=== PATIENT | male | born 1990 | race Caucasian/White ===

== ENCOUNTER 2025-08-07 19:21 | Emergency (ER) | payer BC, SELFPAY ==
--- OUTSIDE RECORDS SUMMARY | 2017-11-06 10:18 | XMS_ITS | Continuity of Care Document ---
Author Organization [facility] Address [address] [place] [address] [place] [address] Care Team Providers Care Stock Hanger Name Role Phone Elie Stoner Unavailable Unavailable Allergies, Adverse Reactions, Alerts Substance Reaction Status Criticality Penicillins Active No Information PENICILLIN Active No Information Medications Medication Instructions Dosage Effective Dates (start - stop) Status Comments sertraline 100 mg tablet take 2 tablet by oral route every day 200 MG - No Longer Active Advance Directives Directive Yes / No Effective Date File Name No Information Encounters Encounter Description Practice Location Reason(s) For Visit Diagnoses Date Provider Providers Copied on Encounter [facility] , [address] [place] [address], [phone], [facility] No Information 9-201 7 Herbie Delgadillo. . [facility] , [address] [place] [address], [id number], [facility] No Information 3-201 7 Herbie Delgadillo. . Family History Family Member Type Diagnosis Age At Onset No Information Payers Payer name Insurance type Covered green party ID Authoriza tion(s) No Information Social History Type Description Quantity Date Captured Comments Sex Male Smoking Status No Information Vital Signs Date / Time: Height Weight BMI Pulse Rate Blood Pressure Temperature Respiratory Rate Body Surface Area Head Circumference Head Circ. Percentile Wt./Yogi. Percentile BMI percentile Pulse Ox Inhaled Ox 3:22 PM 92 /min 122/73 mm[Hg] 18 /min 98 % Chief Complaint And Reason For Visit No Information Reason For Referral Reason For Referral No Information History Of Present Illness Encounter Date Complaint History Of Prese nt Illness No Information Functional Status Date Functional Assessmen t No Information Instructions Date Instruction Additional Infor mellissa Instructions on How to Access Health Services given Assessments Type Assessment Date No Information Patient Care Teams Name Effective Dates (start - stop) Status Members No Information
--- OUTSIDE RECORDS SUMMARY | 2025-06-30 03:00 | XMS_ITS | Encounter Summary ---
Author Organization [email or web address] Address [address], [place] [address] Care Team Providers Care Sample Distributor Name Role Phone Titi Jones PA-C Primary Care Provider [phone]- [phone] Reason for Visit * Reason Comments Medication Questions Entered automatical ly based on patient selection in [employer]. Encounter Details Date Type Department Care Team (Late st Contact Info) Description 06/30/2025 3:00 AM CDT E-Visit [address] [address] Titi Jones PA-C [address] [place] [id number] Dx: Attention deficit hyperactivity disorder (ADHD), combined type (HRC) Social History Tobacco Use Types Packs/Day Years Used Date Smoking Tobacco: Former Cigarettes Q uit: 04/09/2023 Smokeless Tobacco: Never Alcohol Use Standard Drinks/Week Comments Not Currently 0 (1 standard drink = 0.6 oz pur e alcohol) Sober since approx 2019 Sex and Gender Information Value Date Recorded Sex Assigned at Not on file Legal Sex Male 6:54 AM CDT Gender Identity Not on file Sexual Orientation Not on file 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
--- OUTSIDE RECORDS SUMMARY | 2025-07-05 16:15 | XMS_ITS | Encounter Summary ---
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 male who presents for No chief complaint on file. History of Present Illness Eddy Herring is a 34-year-old presenting with depression, anxiety, sleep disturbance, and ADHD symptoms. He reports much improvement in mood and overall functioning compared to previous visits, though periods of significant rumination and overthinking continue. He reports that ongoing symptoms of depression and anxiety have improved with his current medication regimen, but he notes that these can still become severe at times. He currently takes Pristiq 100 mg daily for depression and anxiety, thoughhe expresses some uncertainty about the exact dose and relies on others to manage his medications. Although he expresses uncertainty about how the medication works, he acknowledges some benefit, particularly with reduced rumination. He also takes propranolol 40 mg three times daily, which helps with anxiety. He continues to experience persistent sleep difficulties despite medication adjustments. He currently takes zolpidem (Ambien), which his primary care provider recently increased to 10 mg. He reports that the medication helps him fall asleep quickly and sleep more deeply, but he often wakes up around 1 or 2 a.m. and experiences fragmented sleep for the rest of the night. He also describes episodesof sleep-related eating, particularly when he skips or delays dinner, leading to excessive nighttime snacking and occasional morning nausea. He remains concerned about these side effects and the overall quality of his sleep. He takes gabapentin 300 mg three times daily, which he has used for several months. He reports thatthis medication helps with nerve-related symptoms, but he feels unsure if the current dose is sufficient, as he has noticed a decrease in effectiveness over time. For ADHD symptoms, he takes [id number] mg daily and Adderall 30 mg twice daily, and he does not report any recent changes or concerns with this medication. Describing himself as a very literal person, he notes that this trait affects his daily life and interactions. During this appointment, he identifies being more talkative and engaged than in previousvisits, which he views as a positive change. He reports feeling better than at previous visits and expresses a desire to continue making progress. Psychiatric History: He reported never having been this talkative in any of his appointments in his life. He stated, I really haven't been on a medication that I feel like is, like actually worked before, indicating past medication trials without perceived benefit. Social History: He reported that his partner manages his medications and organizes them in weekly pill containers. Objective There were no vitals taken for this visit. Physical Exam The patient's orientation, memory, Attention, language and fund of knowledge are at their usual best baseline. Grooming/Hygiene: adequate Eye Contact: normal Psychomotor: normal Observed mood and affect: appropriate Judgment: intact, with thoughtful decision making and insight Speech: normal rate, rhythm, tone and volume Thought processes: normal, with normal rate of thought Associations: No deficiency Abnormal Thoughts: none Assessment/Plan Major depressive disorder Currently on Pristiq 100 mg daily with improvement in symptoms but significant rumination and anxiety persists. Discussed increasing Pristiq to 150 mg daily, which is within the typical dosage range of 100-150 mg, with 200 mg used in special circumstances. He prefers to increase to 150 mg. - Increase Pristiq to 150 mg daily by taking one 100 mg tablet and one 50 mg tablet. Insomnia Currently taking zolpidem 10 mg, causing interrupted sleep and sleep-related eating behaviors. Discussed risks of zolpidem, including sleepwalking and sleep eating. He desires a change. Plan to switch to Lunesta, which may provide more stable sleep without immediate need to go to bed after taking. Lunesta is potentially habit-forming but not addictive. - Discontinue zolpidem. - Initiate Lunesta at 2 mg nightly. Chronic neuropathic pain Currently on gabapentin 300 mg three times daily with some benefit but desires increased efficacy. Discussed potential for increasing dosage. Plan to increase gabapentin dosage after other medicationchanges are stabilized. Attention-deficit hyperactivity disorder (ADHD) Currently managed with Adderall 15 mg daily and 30 mg twice daily. Anxiety disorder Anxiety managed with propranolol 40 mg three times daily and Pristiq. 1. ADHD (attention deficit hyperactivity disorder), inattentive type (HRC) 2. 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
[2025-08-07 19:30] VITALS: BP 118/64; PULSE 75; RESP 16; TEMP 36.7; O2SAT 98; BMI 34.0
--- NOTE | 2025-08-07 19:42 | ED.SKABFB ---
HPI - Skin/Abscess/Foreign Bdy General Time Seen by Provider: 19:42 Date Seen: 08/07/25 Chief complaint: Skin/Abscess/Foreign Body Stated complaint: ear infection/Mrsa infection Time Seen by Provider: 08/07/25 19:34 Source: patient and RN notes reviewed Mode of arrival: ambulatory Limitations: no limitations History of Present Illness HPI narrative: This 34-year-old male is coming in with concern of infections. Has a wound on his right forearm which he states he has popped and drained. States sometimes ahead comes out of it, might be a bug. He has cuts and scrapes elsewhere in his body, he has a lesion on his back that he thinks might need to be popped. He denies any fevers, he believes he is up-to-date on his tetanus. He states that he does not do any drug use, no injections. He states he has depression and sometimes has cut himself. Denies any acute suicidality. 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 He notes his left ear is bothering him, would like me to look at it, hearing is diminished. Not painful now but has been painful. He did have some antibiotic drops, he wondered if the ear canal was swelling. He has had no acute cough or cold symptoms. Some of his wounds he states he has had for a long time. Related Data Home Medications ?Medication ?Instructions ?Recorded ?Confirmed desvenlafaxine succinate PO 08/07/25 dextroamphetamine-amphetamine .ROUTE 08/07/25 gabapentin .ROUTE 08/07/25 propranolol .ROUTE 08/07/25 Allergies Allergy/AdvReac Type Severity Reaction Status Date / Time No Known Drug Allergies Allergy Verified 08/07/25 19:36 Review of Systems Narrative: As per HPI. PFSH PFS Social History How often do you have a drink containing alcohol: never AUDIT-C Alcohol total score: 0 Non-prescribed substance use: denies use Exam Const: Vital Signs, click to edit/add: Vital Signs - 24 hr 08/07/25 19:30 Temperature 98.1 F Pulse Rate [Pulse Oximeter] 75 Respiratory Rate 16 Blood Pressure [Ri ght Upper Arm] 118/64 Pulse Oximetry 98 Oxygen Delivery Me thod Room Air This 34-year-old male is alert, interactive, no apparent distress. His speech is normal, not pressured. Sclera clear, pupils equal and round, face atraumatic, no lesions noted on his face. At the base of his skin overlying the lower left scapula, he has an abrasion, there is no fluctuance to it, no surrounding erythema. I can see scrape wounds that her older on his left flank and torso, did ask him about this but he stated he had bad day at 1 point, would not tell me further on how the injury happened. Lungs are clear, good air entry, no wheezing or crackles, no tachypnea, no accessory muscle use. CV regular rate and rhythm, no murmur, normal S1-S2, no S3 or S4. On his right forearm he has a bandage, this was removed, there is a raised area with some erythema, the center looks like it has been picked, the area contains a central pocket of whitish exudate in this was cultured. When this is removed, there is some subcutaneous tissue but no further abscess. There is a little bit of erythema surrounding the site, looks like it could be some infection or cellulitis that is mild. He has full range of motion both arms. He has various scrapes on his legs, none of which are infected. Did review with him that the lesion on his left back area just looks like an abrasion, encouraged him to try to leave this alone. His ears externally are normal. Left canal looks normal, tympanic membrane has some whitish fluid behind it but no erythema, there is loss of translucency and loss of light reflex. Documenting provider has reviewed patient's vital signs: yes Course Course ED Course: We did culture the right forearm central area. Patient denies any drug use. I did not feel like it pressed him further without upsetting him. He seems to be coherent and providing me appropriate history. He is answered questions appropriately. Even though no eye potentially suspect something like underlying methamphetamine use, he is denying any drug use. Do feel his arm should be treated with antibiotics. Vital Signs Vital signs: Initial Vital Signs Temperature 98.1 F 08/07/25 19:30 Temperature Source Temporal Artery Scan 08/07/25 19:30 Pulse Rate 75 08/07/25 19:30 Respiratory Rate 16 08/07/25 19:30 Blood Pressure 118/64 08/07/25 19:30 Blood Pressure Mean 82 08/07/25 19:30 Blood Pressure Position Sitting 08/07/25 19:30 Pulse Oximetry 98 08/07/25 19:30 Oxygen Delivery Method Room Air 08/07/25 19:30 Vital Signs Temperature 98.1 F 08/07/25 19:30 Pulse Rate 75 08/07/25 19:30 Respiratory Rate 16 08/07/25 19:30 Blood Pressure 118/64 08/07/25 19:30 Pulse Oximetry 98 08/07/25 19:30 Oxygen Delivery Method Room Air 08/07/25 19:30 Temperature 98.1 F 08/07/25 19:30 Pulse Rate 75 08/07/25 19:30 Respiratory Rate 16 08/07/25 19:30 Blood Pressure 118/64 08/07/25 19:30 Pulse Oximetry 98 08/07/25 19:30 Oxygen Delivery Method Room Air 08/07/25 19:30 Discharge Plan Discharge Clinical Impression: Cellulitis Qualifiers: Site of cellulitis: extremity Site of cellulitis of extremity: upper extremity Laterality: right Qualified Code(s): L03.113 - Cellulitis of right upper limb Serous otitis media Qualifiers: Chronicity: unspecified Laterality: left Qualified Code(s): H65.92 - Unspecified nonsuppurative otitis media, left ear Patient Disposition: Home, Self-Care Condition: Stable Instructions: Cellulitis (ED), Fluid In The Ear (Serous Otitis Media) (ED) Additional Instructions: Wound culture was collected from your arm. If this requires any change in antibiotics we will let you know. Start the doxycycline 100 mg twice a day for 10 days. This should cover MRSA. Other things you can try for your left ear are [id number] nasal steroid like fluticasone. Follow bottle directions for sprain into your nose. This helps shrink the mucous membranes an open up the eustachian tube, thus opening up the ear better. If you are not improving over the next week or worsening, do recommend following up in clinic. Activity Level: Activity as Tolerated Prescriptions: No Action dextroamphetamine-amphetamine [Adderall] .ROUTE propranolol .ROUTE desvenlafaxine succinate [Pristiq] PO gabapentin .ROUTE Stand Alone Forms: MyHealth Info Instructions
--- OUTSIDE RECORDS SUMMARY | 2025-08-07 20:06 | XMS_ITS | Clinical Summary ---
Author Organization [facility] Address [address] [place] [address] Care Team Providers Care Fruit Press Operator Name Role Phone Titi Jones PA-C Primary Care Provider [phone]- [phone] Source Comments You are receiving this document as you are listed as the primary care provider,follow-up provider, or the patient has been referred to you for consultation.This is in compliance with the Medicare andMedicaid EHR Incentive Program,which states Providers who transition their patient to another setting of careor provider of care or refers their patient to another provider of care shouldprovide summary care record for each transition of care or referral. [facility] Allergies No known active allergies Medications sildenafil (VIAGRA) 100 MG tablet Take 1 Tablet (100 mg) by mouth daily as needed. 5 Active ferrous sulfate 325 (65 Fe) MG tabletIndications: Iron deficiency anemia, unspecified iron deficiency anemia type Take 1 Tablet (325 mg) by mouth three times a week. 36 Tablet 3 5 02/07/20 26 Active medical cannabis patient certified Take as instructed. Active gabapentin (NEURONTIN) 300 MG capsuleIndications :Anxiety (HRC),Emotional dysregulation,Inso mnia, unspecified type Take 1 Capsule (300 mg) by mouth three times a day. 270 Capsule 3 5 Active propranolol (INDERAL) 40 MG tabletIndications: Anxiety (HRC) Take 1 Tablet (40 mg) by mouth three times a day. 270 Tablet 1 5 05/18/20 26 Active amphetamine-dextro amphetamine (ADDERALL) 15 MG tabletIndications: Attention deficit hyperactivity disorder (ADHD), combined type (HRC) Take 1 Tablet (15 mg) by mouth daily. 30 Tablet 5 Active amphetamine-dextro amphetamine (ADDERALL) 30 MG tabletIndications: Attention deficit hyperactivity disorder (ADHD), combined type (HRC) Take 1 Tablet (30 mg) by mouth two times a day. 60 Tablet 5 Active desvenlafaxine succinate (PRISTIQ) 50 MG 24 hour release tablet Take 1 Tablet (50 mg) by mouth daily. 90 Tablet 3 5 07/06/20 26 Active desvenlafaxine (PRISTIQ) 100 MG 24 hour release tablet Take 1 Tablet (100 mg) by mouth daily. 90 Tablet 3 5 07/06/20 26 Active eszopiclone (LUNESTA) 2 MG tablet Take 1 tab HS 30 Tablet 5 Active amphetamine-dextro amphetamine (ADDERALL) 15 MG tablet Take 1 Tablet (15 mg) by mouth daily for 30 days. 1 of 3 30 Tablet 5 08/30/20 25 Active amphetamine-dextro amphetamine (ADDERALL) 15 MG tablet Take 1 Tablet (15 mg) by mouth daily for 30 days. 2 of 3 Do not start before August 30, 2025. 30 Tablet 5 09/29/20 25 Active amphetamine-dextro amphetamine (ADDERALL) 15 MG tablet Take 1 Tablet (15 mg) by mouth daily for 30 days. 3 of 3 Do not start before September 29, 2025. 30 Tablet 5 10/29/20 25 Active amphetamine-dextro amphetamine (ADDERALL) 30 MG tablet Take 1 Tablet (30 mg) by mouth two times a day for 30 days. 1 of 3 60 Tablet 5 08/30/20 25 Active amphetamine-dextro amphetamine (ADDERALL) 30 MG tablet Take 1 Tablet (30 mg) by mouth two times a day for 30 days. 2 of 3 Do not start before August 30, 2025. 60 Tablet 5 09/29/20 25 Active amphetamine-dextro amphetamine (ADDERALL) 30 MG tablet Take 1 Tablet (30 mg) by mouth two times a day for 30 days. 3 of 3 Do not start before September 29, 2025. 60 Tablet 10/29/20 Active Active Problems Problem Noted Date Diagnosed Date Careplan ADHD 03/08/2025 Overview (06/19/2025): Diagnosis: ADHD [place] PDMP reviewed: yes, 06/19/2025 Yearly urine drug screens will be obtained: yes, 02/02/25 Last seen: 04/11/25 The patient is taking the following controlled medications -- Adderall 30 tablets: Take 1 tab PO twice daily This medication may be refilled every month for a total of 60 tablets Adderall 15 tablets: Take 1 tab PO daily This medication may be refilled every month for a total of 30 tablets The patient should be seen every 6 months. He is also working with Behavioral Health. Medical cannabis use 02/09/2025 Chronic heel pain, right 02/09/2025 Iron deficiency anemia 02/02/2025 Insomnia 02/01/2025 Emotional dysregulation 01/31/2025 Attention deficit hyperactiv ity disorder (ADHD), combined type 01/31/2025 Electronic cigarette use 01/31/2025 Elevated transaminase level 08/05/2023 History of substance use 07/02/2021 Overview (01/31/2025): Previously using kratom daily. On suboxone April-June 2021 to stop kratom use. Now off of kratom and suboxone. Anxiety 04/26/2021 History of alcoholism 02/22/2021 Depressive disorder 04/22/2011 Resolved Problems Problem Noted Date Diagnosed Date Resolved Date Abscess of skin 02/01/2025 04/11/2025 Tobacco use disorder 01/31/2025 025 Bipolar 1 disorder 08/05/2023 Opioid use disorder, severe, in early remission 11/26/2021 02/01/2025 ADHD (attention deficit hype ractivity disorder), predominantly hyperactive impulsive type 02/22/2021 01/31/2025 Controlled substance agreement signed 02/22/2021 01/31/2025 Encounters Date Type Department Care Team Description 07/29/2025 Refill [place] [facility] [address] [place] [address] Titi Jones PA-C Refill (amphetamine-dextroamph etamine (ADDERALL) 30 MG tablet [Pharmacy Med Name: Amphetamine-Dextroamphe tamine Oral Tablet 30 MG]; amphetamine-dextroamphe tamine (ADDERALL) 15 MG tablet [Pharmacy Med Name: Amphetamine-Dextroamphe tamine Oral Tablet 15 MG]) 07/05/2025 4:15 PM CDT Telemedicine [facility] [address] [place] [address]. 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 [address] Enrike Barnett MSW, VIRGIE 06/29/2025 E-Visit [address] [place] [address] Enrike Barnett MSW, VENETIAN BLIND INSTALLER 06/19/2025 5:20 PM CDT Telemedicine [address] [phone] Titi Jones PA-C Insomnia, unspecified type (Primary Dx) 06/13/2025 3:30 PM CDT Telemedicine [address] [place] [address] Enrike Barnett MSW, VENETIAN BLIND INSTALLER Generalized anxiety disorder (HRC) (Primary Dx); Depression, unspecified depression type 05/30/2025 8:00 AM CDT Telemedicine [facility] [address] [place] [address]. [place] [address] Sherman Reese PA-C ADHD (attention deficit hyperactivity disorder), inattentive type (HRC) (Primary Dx); Generalized anxiety disorder (HRC) 05/30/[address] [address] Titi Jones PA-C Refill (amphetamine-dextroamph etamine (ADDERALL) 15 MG tablet [Pharmacy Med Name: Amphetamine-Dextroamphe tamine Oral Tablet 15 MG]; amphetamine-dextroamphe tamine (ADDERALL) 30 MG tablet [Pharmacy Med Name: Amphetamine-Dextroamphe tamine Oral Tablet 30 MG]) 05/18/2025 4:35 PM CDT Telemedicine [address] [address] Titi Jones PA-C Anxiety (HRC) (Primary Dx); Insomnia, unspecified type; Attention deficit hyperactivity disorder (ADHD), combined type (HRC); Iron deficiency anemia, unspecified iron deficiency anemia type 05/11/2025 1:00 PM CDT Telemedicine [facility] [address] [place] [address]. [place] [address] Enrike Barnett, INNOVATION MANAGER, [facility] Encounters for administrative purposes (Primary Dx) from Last 3 Months Immunizations Immunization Administration Dates Next Due 9vHPV (Gardasil 9) 04/11/2025,12/21/2020, 016 DTaP 09/28/1995, 2,02/18/1991,1990 ,1990 HepB Ped/Adol (0-18 yrs) 06/10/1999,02/05/1999,0 12/31/1998 Hib (ActHIB) 11/07/1991,02/18/1991,1990 ,1990 IPV (Polio) 09/28/1995,02/29/1992,1990 ,1990 MMR 01/01/1999,11/07/1991 Pfizer Monovalent 12+ Purple Top 04/25/2021,0504/2021 Td (7+ yrs) 03/17/2003 Tdap 02/04/2025,12/01/2014 Family History Medical History Relation Name Comments No Known Problems Father Depression Mother ADHD Daughter 1 Anxiety Daughter 1 Depression Daughter 1 No Known Problems Daughter 2 No Known Problems Sister ADHD Son Anxiety Son Conduct disorder Son Depression Son Psychopathic tendences Son Relation Name Status Comments Father Alive Mother Alive Daughter 1 Alive Daughter 2 Alive Sister Alive Son Alive Social History Tobacco Use Types Packs/Day Years Used Date Smoking Tobacco: Former Cigarettes Q uit: 04/09/2023 Smokeless Tobacco: Never Tobacco Cessation:Counseling Given: Not Answered Alcohol Use Standard Drinks/Week Comments Not Currently [...] file Not on file Not on file Last Filed Vital Signs Vital Sign Reading Time Taken Comments Blood Pressure 117/71 04/11/2025 10:34 AM CDT Pulse 70 04/11/2025 10:34 AM CDT Temperature 37 C (98.6 F) 03/08/2014 6:29 PM CDT Respiratory Rate 14 03/09/2014 4:30 AM CDT Oxygen Saturation 93% 03/09/2014 5:00 AM CDT Inhaled Oxygen Concentration - - Weight 72.6 kg (160 lb) 06/19/2025 4:21 PM CDT Height 180.3 cm (5' 11) 01/31/2025 10:26 AM CDT Body Mass Index 22.32 01/31/2025 10:26 AM CDT Plan of Treatment Health Maintenance Due Date Last Done Comments Adult Preventive Visit 2008 Pneumococcal Vaccine (1 of 2 - PCV) 2009 COVID-19 Vaccine (3 - season) 2025 04/25/2021, 04/03/2021 Influenza Vaccine (#1) 2025 DTaP/Tdap/Td Vaccine (8 - Tdap) 02/04/2035 02/04/2025, 12/01/2014, 03/17/2003, Additional history exists Zoster/Shingles Vaccine (1 of 2) 2040 Hib Vaccine Completed 11/07/1991, 02/07, 1990, Additional history exists IPV (Polio) Vaccine Completed 09/28/1995, 02/29/1992, 1990, Additional history exists HepB Vaccine Completed 06/10/1999, 01/09, 12/31/1998 HIV Screening (Preventive Services) Completed 04/19/2021 Hep C Screening (Preventive Services) Completed 02/02/2025 HPV Vaccine Completed 04/11/2025, 12/10, 08/29/2016 HepA Vaccine Aged Out No longer eligi ble based on patient's age to complete this topic MCV4 Vaccine Aged Out No longer eligi ble based on patient's age to complete this topic Meningococcal B Vaccine Aged Out No l onger eligible based on patient's age to complete this topic Procedures Procedure Name Priority Date/Time Associated Diagnosis Comments HEPATITIS C ANTIBODY, WITH REFLEX (ANTI-HCV) Routine 02/02/2025 10:12 AM CDT Need for hepatitis C screening test from Last 3 Months or Most Recently Relevant to Health Maintenance Results * Hepatitis C Antibody, with Reflex (02/02/2025 10:12 AM CDT) Hepatitis C Antibody Negative (Non Reactive) Negative (Non Reactive) 02/02/2025 2:36 PM CDT [facility] Comment:Antibodies to HCV no t detected. Does not exclude the possiblity of exposure to HCV. Blood Venipuncture / Unknown 02/02/2025 10:12 AM CDT 02/02/2025 10:12 AM CDT us Tyrese Rivers PA-C LAB_1 Final Resu lt [facility] [address] [place] [address], [facility] from Last 3 Months or Most Recently Relevant to Health Maintenance Insurance [facility] [employer] [facility] Care Teams Fruit Press Operator Relationship Specialty Start Date End Date Titi Jones PA-C [address] [place] [address] PCP - General Physician Manager Interface 05/31/25
--- OUTSIDE RECORDS SUMMARY | 2025-08-07 20:06 | XMS_ITS | Encounter Summary ---
Author Organization [facility] Address [address], [place] [address] Care Team Providers Care Gemologist Name Role Phone Titi Jones PA-C Primary Care Provider +1- [phone] Encounter Details Date Type Department Care Team (Late st Contact Info) Description 06/29/2025 [facility] [address] 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 Therapist left a voicemail for client; purpose of the voicemail was to provide client with in- person referrals for therapists that are closer to his location. Therapist asked client to look into the referrals and schedule with a therapist at one of the referral clinics as soon as possible for in-person therapy. documented in this encounter Plan of Treatment Not on file documented as of this encounter Visit Diagnoses Not on filedocumented in this encounter Care Teams Gemologist Relationship Specialty Start Date End Date Titi Jones PA-C [address] [place] [address] PCP - General Physician Research Geneticist 05/31/25 documented as of this encounter
--- OUTSIDE RECORDS SUMMARY | 2025-08-07 20:06 | XMS_ITS | CCD ---
Author Name Interface, [id number] lity Address [address] [place] [address] [facility] Oncology Address [facility] [address] [address] Reason for Visit Social History Date Name Value 07/08/2025 Sex Male
--- OUTSIDE RECORDS SUMMARY | 2025-08-07 20:06 | XMS_ITS | Encounter Summary ---
Author Organization [facility] Address [address], [place] [address] Care Team Providers Care Processing Manager Name Role Phone Titi Jones PA-C Primary Care Provider +1- [phone] Reason for Visit * Reason Comments Refill amphetamine-dextroam phetamine (ADDERALL) 30 MG tablet [Pharmacy Med Name: Amphetamine-Dextroamphetamine Oral Tablet 30 MG]; amphetamine-dextroamphetamine (ADDERALL) 15 MG tablet [Pharmacy Med Name: Amphetamine-Dextroamphetamine Oral Tablet 15 MG] Encounter Details Date Type Department Care Team (Late st Contact Info) Description 07/29/2025 Refill [facility] [address] [place] [address] Titi Jones PA-C [address] [place] [address] Refill (amphetamine-dextroamphe tamine (ADDERALL) 30 MG tablet [Pharmacy Med Name: Amphetamine-Dextroamphet amine Oral Tablet 30 MG]; amphetamine-dextroamphet amine (ADDERALL) 15 MG tablet [Pharmacy Med Name: Amphetamine-Dextroamphet amine Oral Tablet 15 MG]) Social History Tobacco Use Types Packs/Day Years [...] as of this encounter Nursing Notes * Jose Manuel Parsons Xrwcomm - 07/29/2025 9:30 AM CDT amphetamine-dextroamphetamine (ADDERALL) 15 MG tablet [Pharmacy Med Name: Amphetamine-Dextroamphetamine Oral Tablet 15 MG] Medication started: 01/31/2025 Last ordered by TITI JONES: 06/30/2025 (29 days ago) QTY: 30, Refills: 0, Sig: take 1 tablet(15 mg) by mouth daily. (changed but equivalent) -> The medication is active at more than one strength (3.75-3.75-3.75-3.75 mg on 06/30/2025, 7.5-7.5-7.5-7.5 mg on 06/30/2025). -> Medication cannot be delegated. Last qualifying visit: 06/19/2025 (with TITI JONES) Next scheduled visit: [facility] Embedded Refills, Reference: [id number], 07/29/2025 9:30:13 AM Maikol HOOPER: CHENCHO Refill [facility] ([id number]) amphetamine-dextroamphetamine (ADDERALL) 30 MG tablet [Pharmacy Med Name: Amphetamine-Dextroamphetamine Oral Tablet 30 MG] Medication started: 01/31/2025 Last ordered by TITI JONES: 06/30/2025 (29 days ago) QTY: 60, Refills: 0, Sig: take 1 tablet(30 mg) by mouth two times a day. (changed but equivalent) -> The medication is active at more than one strength (7.5-7.5-7.5-7.5 mg on 06/30/2025, 3.75-3.75-3.75-3.75 mg on 06/30/2025). -> Medication cannot be delegated. Last qualifying visit: 06/19/2025 (with TITI JONES) Next scheduled visit: [facility] Embedded Refills, Reference: [id number], 07/29/2025 9:30:13 AM DANYATMaikol: CHENCHO Refill [facility] ([id number]) * Jose Manuel Parsons Xrwcomdelisa - 07/29/2025 9:30 AM CDT The following is the most recent Careplan note pulled in by [employer]: Diagnosis: ADHD [place] PDMP reviewed: yes, 06/19/2025 [...] He is also working with Behavioral Health. documented in this encounter Plan of Treatment Not on file documented as of this encounter Visit Diagnoses Diagnosis Attention deficit hyperactivity disorder (ADHD), combined type (HRC) documented in this encounter Care Teams Processing Manager Relationship Specialty Start Date End Date Titi Jones PA-C [address] [place] [address] PCP - General Physician Modeling Agency Manager 05/31/25 documented as of this encounter
--- OUTSIDE RECORDS SUMMARY | 2025-08-07 20:06 | XMS_ITS | Encounter Summary ---
Author Organization [facility] Address [address] [place] [address] Care Team Providers Care Letterer Name Role Phone Titi Jones PA-C Primary Care Provider +1- [phone] Encounter Details Date Type Department Care Team (Late st Contact Info) Description 02/13/2014 Scanned History External to External, [place] [address] MEDICAL DETOX Social History Tobacco Use Types Packs/Day Years Used Date Smoking Tobacco: Every Day Cigarettes Alcohol Use Standard Drinks/Week Comments Yes 0 (1 standard drink = 0.6 oz pure alcohol) discharged from [facility] today [id number] Sex and Gender Information Value Date Recorded Sex Assigned at Not on file Legal Sex Male 6:54 AM CDT Gender Identity Not on file Sexual Orientation Not on file documented as of this encounter Progress Notes * External, Provider - 02/13/2014 12:00 AM CDT documented in this encounter Plan of Treatment Not on file documented as of this encounter Visit Diagnoses Not on filedocumented in this encounter Care Teams Letterer Relationship Specialty Start Date End Date Titi Jones PA-C [address] [place] [address] PCP - General Physician Senior Research Consultant 05/31/25 documented as of this encounter
--- OUTSIDE RECORDS SUMMARY | 2025-08-07 20:06 | XMS_ITS | Encounter Summary ---
Author Organization [facility] Address [address], [place] [address] Care Team Providers Care Chargeback Analyst Name Role Phone Titi Jones PA-C Primary Care Provider +1- [phone] Encounter Details Date Type Department Care Team (Late st Contact Info) Description 06/29/2025 E-Visit [facility] [address] [facility] [place] [address] Enrike Barnett, TILE INSTALLER, [facility] [address] [facility] [place] [address] Social History Tobacco Use Types Packs/Day Years [...] on filedocumented in this encounter Care Teams Chargeback Analyst Relationship Specialty Start Date End Date Titi Jones PA-C [address] [place] [address] PCP - General Physician Redrawer 05/31/25 documented as of this encounter
--- OUTSIDE RECORDS SUMMARY | 2025-08-07 20:06 | XMS_ITS | Clinical Summary ---
Author Organization [employer] [facility] Address [address] [place] [address] Care Team Providers Care Hot Metal Crane Operator Name Role Phone Tyrese Rivers PA-C Primary Care Provider +1- [phone] Allergies Active Allergy Reactions Criticality Noted Date Comments Sulfa (Sulfonamide Antibiotics) Rash Low 05/11 Medications amphetamine-dextro amphetamine (AdderalL) 15 mg tabletIndications: ADHD (attention deficit hyperactivity disorder), predominantly hyperactive impulsive type Take 1 Tablet (15 mg) by mouth once daily. 30 Tablet 5 Active amphetamine-dextro amphetamine (AdderalL) 30 mg tabletIndications: ADHD (attention deficit hyperactivity disorder), predominantly hyperactive impulsive type Take 1 Tablet (30 mg) by mouth two times daily. 60 Tablet 5 Active lamoTRIgine 100 mg tabletIndications: Bipolar 1 disorder (HC) Take 1 Tablet (100 mg) by mouth three times daily. 90 Tablet 1 5 Active sertraline (ZOLOFT) 100 mg tabletIndications: Depressive disorder,Anxiety Take 2 Tablets (200 mg) by mouth once daily in the morning. 60 Tablet 5 Active sildenafil citrate (VIAGRA) 100 mg tabletIndications: ED (erectile dysfunction) of organic origin Take 1 Tablet (100 mg) by mouth once daily if needed for Erectile Dysfunction. Take 30min to 4 hours before sexual activity. Max 100mg/24hr. 10 Tablet Active Active Problems Problem Noted Date Diagnosed Date Bipolar 1 disorder 08/05/2023 Elevated transaminase level 08/05/2023 Opioid use disorder, severe, in early remission 11/26/2021 History of substance use 07/02/2021 Overview (07/02/2021): Previously using kratom daily. On suboxone April-June 2021 to stop kratom use. Now off of kratom and suboxone. Anxiety 04/26/2021 Controlled substance agreement signed 02/22/2021 ADHD (attention deficit hype ractivity disorder), predominantly hyperactive impulsive type 02/22/2021 Tobacco use disorder, severe, on maintenance the rapy 02/22/2021 Overview (07/01/2021): Previously smoking 3-4 packs daily. Now on nicotine patch. History of alcoholism 02/22/2021 Self-inflicted injury 03/16/2016 Overview (03/16/2016): 03/16/2016 he cut his chest in a cross like pattern Depressive disorder, not elsewhere classified Resolved Problems Problem Noted Date Diagnosed Date Resolved Date Constipation due to opioid therapy 07/19/2021 08/05/2023 History of substance abuse 02/22/2021 0 07/11/2021 Attention deficit hyperactiv ity disorder (ADHD) 08/05/2017 02/22/2021 Hematemesis with nausea 03/16/201607/11 Chemical dependency 04/14/2013 02/23/20 21 Uvular swelling 05/11/2012 08/05/2023 Acute alcoholic intoxication in alcoholism, unspecified 04/22/2011 02/22/2021 Encounters Date Type Department Care Team Description 07/28/2025 Telephone [facility] [address] [place] [address] Madeleine Gustafson OD OPTICAL RETAIL (GLASSES) 07/18/2025 3:40 PM CDT Office Visit [facility] [address] [place] [address] Madeleine Gustafson, OD Eye Exam 07/18/2025 Travel 05/15/2025 Refill [facility] [address] [place] [address] Sherman Reese PA Refill Request (Sertraline) from Last 3 Months Immunizations Immunization Administration Dates Next Due COVID-19 vaccine (Pfizer-Bio NTech 30mcg/0.3mL) PF, MDV 04/25/2021,04/03/2021 DTaP 09/28/1995, 2,02/18/1991,1990,1990 HIB PRP-T (ActHIB,Hiberix) 11/07/1991,,1990,1989 HPV 9 (Gardasil 9) 12/21/2020,08/29/2016 Hepatitis B (Peds) 06/10/1999,02/05/1999, 999 Inactivated Polio Vaccine 09/28/1995,,1990,1989 MMR 01/01/1999,11/07/1991 Tdap 02/04/2025,12/01/2014 Family History Medical History Relation Name Comments No Known Problems Father Alcoholism Maternal Grandfather Cancer-breast Maternal Grandmother Depression Mother Hypertension Mother Alcoholism Paternal Grandfather No Known Problems Paternal Grandmother No Known Problems Sister Relation Name Status Comments Father Alive Maternal Grandfather Maternal Grandmother Mother Alive Paternal Grandfather Paternal Grandmother Alive Sister Alive Social History Tobacco Use Types Packs/Day Years Used Date Smoking Tobacco: Former Cigarettes Smokeless Tobacco: Never Tobacco Cessation:Counseling Given: Yes Comments:12/15/24 Alcohol Use Standard Drinks/Week Comments Not Currently 0 (1 standard drink = 0.6 oz pur e alcohol) sober since 2017 PHQ-2 Answer Date Recorded PHQ-2 TOTAL SCORE 1 12/15/2024 Social Connections Answer Date Recorded Do you often feel lonely or isolated from those around you? 0 12/26/2024 Financial Resource Strain Answer Date R ecorded Difficulty of Paying Living Expenses 3 12/26/2024 Difficulty of Paying Living Expenses Not on file 12/26/2024 Food Insecurity Answer Date Recorded Do you worry your food will run out before you are able to buy more? 1 12/26/2024 Transportation Needs Answer Date Record ed Does lack of transportation keep you from medica l appointments? 1 12/26/2024 Does lack of transportation keep you from work, meetings or getting things that you need? 1 12/26/2024 Housing Stability Answer Date Recorded What is your housing situation today? 1 12/26/2024 Interpersonal Safety Answer Date Record ed Are you being hit, kicked, p ushed or yelled at (see row info)? No 02/04/2025 Interpersonal Safety Abuse 12 - 18 Not on file 02/04/2025 Interpersonal Safety Ambulatory Vulnerability No t on file 02/04/2025 Utilities Answer Date Recorded Do you have trouble paying f or utilities (for example, heat, electricity, water, phone)? 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 Gender Identity Male 05/31/2021 7:19 AM CDT Sexual Orientation Not on file Occupation Industry Job Start Date Job End Date Not on file Not on file Not on file Not on file Obstetrics History Last Filed Vital Signs Vital Sign Reading Time Taken Comments Blood Pressure 116/78 02/04/2025 11:30 AM CDT Pulse 64 02/04/2025 10:14 AM CDT Temperature 36.6 C (97.9 F) 02/04/2025 9:10 AM CDT Respiratory Rate 20 02/04/2025 9:10 AM CDT Oxygen Saturation 99% 02/04/2025 10:14 AM CDT Inhaled Oxygen Concentration - - Weight 77.1 kg (170 lb) 02/04/2025 9:10 AM CDT Height 180.3 cm (5' 11) 02/04/2025 9:10 AM CDT Body Mass Index 23.71 02/04/2025 9:10 AM CDT Plan of Treatment Health Maintenance Due Date Last Done Comments Pneumococcal series for age 6-49 (1 of 2 - PCV) 2009 HPV series for age 9-45 (3 - Male 3-dose series) 03/15/2021 12/21/2020, 08/29/2016 COVID-19 vaccine series ( season) 2025 04/25/2021, 04/03/2021 Influenza Vaccine (#1) 2025 Depression screening for age 12+ 12/15/2025 12/15/2024, 12/15/2024, 07/21/2024, Additional history exists BMI (ht and wt on same day) for age 18+ 12/30/2025 12/30/2024, 05/07/2023, 09/10/2022, Additional history exists Tetanus booster 02/04/2035 02/04/2025, 12/01/2014 RSV vaccine for adults or (1 - 1-dose 75+ series) 2065 Hepatitis B series for 19+ Completed 06/10, 02/05/1999, 12/31/1998 HIV for age 15-65 Completed 04/19/2021 Hepatitis C screening for ag e 18-79 Completed 04/19/2021 Procedures Procedure Name Priority Date/Time Associated Diagnosis Comments ANTI HIV 1/2 Routine 04/19/2021 9:29 AM CDT Opioid use disorder, severe, dependence (HC) ANTI HCV Routine 04/19/2021 9:29 AM CDT Opioid use disorder, severe, dependence (HC) from Last 3 Months or Most Recently Relevant to Health Maintenance Results * ANTI HCV (04/19/2021 9:29 AM CDT) HEPATITIS C ANTIBODY Non-React costa Non-React costa 04/19/2021 2:45 PM CDT [facility] Comment:Antibodies to HCV no t detected; does not exclude the possibility of exposure to HCV. Blood BLOOD SPECIMEN / Unknown Venipuncture / Unknown 04/19/2021 9:29 AM CDT 04/19/2021 9:29 AM CDT us Rebekah Rasmussen MD SEND OUTS Final Result [facility] [address] [place] [address], [place] * ANTI HIV 1/2 (04/19/2021 9:29 AM CDT) HIV-1/HIV-2 ANTIBODY Non-Reacti ve Non-Reacti ve 04/19/2021 2:44 PM CDT [facility] Comment:HIV-1 p24 and HIV-1/ HIV-2 Ab not detected. Blood BLOOD SPECIMEN / Unknown Venipuncture / Unknown 04/19/2021 9:29 AM CDT 04/19/2021 9:29 AM CDT us Rebekah Rasmussen MD SEND OUTS Final Result [facility] [address] [place] [address], [place] from Last 3 Months or Most Recently Relevant to Health Maintenance Insurance [place] [id number] [facility] NOEL VICK [employer] Advance Directives * Full Code (Latest Code Status on File) Date Activated Date Inactivated Comments 03/16/2016 3:47 AM 03/16/2016 1:40 PM * Full Code Date Activated Date Inactivated Comments 04/17/2011 4:19 PM 04/21/2011 2:17 PM Care Teams Hot Metal Crane Operator Relationship Specialty Start Date End Date Tyrese Rivers PA-C [address] [place] [address] PCP - General Physician Poultry Farm Laborer 02/05/25
== END 2025-08-07 20:26 | disposition home or self-care (01) ==
LOC: ED 20:03
PROVIDERS: Emergency Provider Family Medicine
DX: L03.113 Cellulitis of right upper limb (principal); H65.92 Unspecified nonsuppurative otitis media, left ear
CPT/HCPCS: 87070; 87186; 99283; 99284

== ENCOUNTER 2025-08-15 19:06 | Emergency (ER) | payer BC, SELFPAY ==
--- OUTSIDE RECORDS SUMMARY | 2017-11-06 10:18 | XMS_ITS | Continuity of Care Document ---
Author Organization [facility] Address [address] [place] [address] [place] [address] Care Team Providers Care Customs Port Director Name Role Phone Elie Stoner Unavailable Unavailable [...] Diagnoses Date Provider Providers Copied on Encounter [facility] , [address] [place] [address], [phone], [facility] No Information 9- 7 Herbie Delgadillo. . [facility] , [address] [place] [address], [id number], [facility] No Information 3-201 7 Herbie Delgadillo. . Family History Family Member Type Diagnosis Age At Onset No Information Payers Payer name Insurance type Covered libertarian ID Authoriza tion(s) No Information Social History [...] No Information Instructions Date Instruction Additional Infor zackion Instructions on How to Access Health Services given Assessments Type Assessment Date No Information Patient Care Teams Name Effective Dates (start - stop) Status Members No Information
--- OUTSIDE RECORDS SUMMARY | 2017-11-06 10:18 | XMS_ITS | Continuity of Care Document ---
Author Organization [facility] Address [address] [place] [address] [place] [address] Care Team Providers Care Special Education Secretary Name Role Phone Elie Stoner Unavailable Unavailable [...] Diagnoses Date Provider Providers Copied on Encounter [facility] , [address] [place] [address], [id number], [facility] No Information 9- 7 Herbie Delgadillo. . [facility] , [address] [place] [address], [id number], [facility] No Information 3-201 7 Herbie Delgadillo. . [...]
--- OUTSIDE RECORDS SUMMARY | 2025-07-05 16:15 | XMS_ITS | Encounter Summary ---
Author Organization [facility] Address [address], [place] [address] Care Team Providers Care Periodicals Clerk Name Role Phone Robert Titicarlos Lebron PA-C Primary Care Provider [phone]- [phone] Encounter Details Date Type Department Care Team (Late st Contact Info) Description 07/05/2025 4:15 PM CDT Telemedicine [facility] [address] [place] [address] Sherman Reese PA-C [address] [facility] [place] [address] ADHD (attention deficit hyperactivity disorder), inattentive type [...] over time. 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
--- OUTSIDE RECORDS SUMMARY | 2025-08-15 19:07 | XMS_ITS | CCD ---
Author Name Interface, [employer] Address [address] [place] [address] [facility] Address [address] [address] Reason for Visit Social History
--- OUTSIDE RECORDS SUMMARY | 2025-08-15 19:07 | XMS_ITS | Clinical Summary ---
Author Organization [employer] [facility] Address [address] [place] [address] Care Team Providers Care Student Affairs Vice President Name Role Phone Tyrese Rivers PA-C Primary Care Provider +1- [phone] Allergies Active Allergy Reactions Criticality Noted Date [...] Type Department Care Team Description 07/28/2025 Telephone [facility] [address] [place] [address] Madeleine Gustafson OD OPTICAL RETAIL (GLASSES) 07/18/2025 3:40 PM CDT Office Visit [facility] [address] 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 Gender Identity Male 05/31/2021 7:19 AM CDT [...] 12/30/2025 12/30/2024, 05/07/2023, 09/10/2022, Additional history exists Lipids for age 35-44 07/19/2029 07/19/2024, 05/07/2023, 07/11/2021 Tetanus booster 02/04/2035 02/04/2025, 12/01/2014 RSV vaccine for adults or (1 - 1-dose 75+ series) 2065 Hepatitis B series for 19+ Completed 06/10, 02/05/1999, 12/31/1998 HIV for age 15-65 Completed 04/19/2021 Hepatitis C screening for ag e 18-79 Completed 04/19/2021 Procedures Procedure Name Priority Date/Time Associated Diagnosis Comments LIPID PANEL W REFLEX MEASURED LDL Add On 07/19/2024 1:01 PM CDT Encounter for medication management ANTI HIV 1/2 Routine 04/19/2021 9:29 AM CDT Opioid use disorder, severe, dependence (HC) ANTI HCV Routine 04/19/2021 9:29 AM CDT Opioid use disorder, severe, dependence (HC) from Last 3 Months or Most Recently Relevant to Health Maintenance Results * LIPID PANEL W REFLEX MEASURED LDL (07/19/2024 1:01 PM CDT) CHOLESTEROL,TOTAL 107 100 - 199 mg/dL 07/21/2024 12:23 PM CDT [facility] Comment: Cholesterol, Total Reference Ranges Desirable <200 mg/dL Borderline 200-239 mg/dL High >=240 mg/dL TRIGLYCERIDES 102 <150 mg/dL 07/21/2024 12:23 PM CDT [facility] HDL CHOLESTEROL 42 >40 mg/dL 12:23 PM CDT [facility] NON-HDL CHOLESTEROL 65 <145 mg/dl 07/21/2024 12:23 PM CDT [facility] CHOL/HDL RATIO 2.55 <4.50 07/21/2024 12:23 PM CDT [facility] LDL CHOLESTEROL 45 <=130 mg/dL 07/21/2024 12:23 PM CDT [facility] VLDL CHOLESTEROL 20 <=30 mg/dL 07/21/2024 12:23 PM CDT [facility] PROVIDER ORDERED STATUS RANDOM 07/21/2024 12:23 PM CDT [facility] Blood BLOOD SPECIMEN / Unknown Venipuncture / Unknown 07/19/2024 1:01 PM CDT 07/19/2024 1:01 PM CDT us Anita Grant MD CHEMISTRY Final Result [facility] [address] [place] [address], [place] * ANTI HCV (04/19/2021 9:29 AM CDT) HEPATITIS C ANTIBODY Non-React costa Non-React costa 04/19/2021 2:45 PM CDT [facility] Comment:Antibodies to HCV no t detected; does not exclude the possibility of exposure to HCV. Blood BLOOD SPECIMEN / Unknown Venipuncture / Unknown 04/19/2021 9:29 AM CDT 04/19/2021 9:29 AM CDT us Rebekah Rasmussen MD SEND OUTS Final Result [facility] [address] [place] [address], [place] * ANTI HIV 1/2 (04/19/2021 9:29 AM CDT) HIV-1/HIV-2 ANTIBODY Non-Reacti ve Non-Reacti ve 04/19/2021 2:44 PM CDT [facility] Comment:HIV-1 p24 and HIV-1/ HIV-2 Ab not detected. Blood BLOOD SPECIMEN / Unknown Venipuncture / Unknown 04/19/2021 9:29 AM CDT 04/19/2021 9:29 AM CDT us Rebekah Rasmussen MD SEND OUTS Final Result [facility] [address] [place] [address], from Last 3 Months or Most Recently Relevant to Health Maintenance Insurance [facility] * Guarantor: GINA HERRING Account Type Relation to Patient Date of Phone Billing Address Personal/Family 1990 [id number] [id number] [address] [id number] [employer] Advance Directives * Full Code (Latest Code Status on File) Date Activated Date Inactivated Comments 03/16/2016 3:47 AM 03/16/2016 1:40 PM * Full Code Date Activated Date Inactivated Comments 04/17/2011 4:19 PM 04/21/2011 2:17 PM Care Teams Student Affairs Vice President Relationship Specialty Start Date End Date Tyrese Rivers, PAChiquitaC [address] [place] [address] PCP - General Physician Sheet Cutting Operator 02/05/25
--- OUTSIDE RECORDS SUMMARY | 2025-08-15 19:08 | XMS_ITS | Encounter Summary ---
Author Organization [facility] Address [address] [place] [address] Care Team Providers Care College Teacher Name Role Phone Titi Jones PA-C Primary Care Provider +1- [phone] Encounter Details Date Type Department Care Team (Late st Contact Info) Description 02/13/2014 Scanned History External to External, [place] [address] MEDICAL DETOX Social History Tobacco Use Types Packs/Day Years Used Date Smoking Tobacco: Every Day Cigarettes Alcohol Use Standard Drinks/Week Comments Yes 0 (1 standard drink = 0.6 oz pure alcohol) discharged from [facility] today [id number] Sex and Gender Information Value [...] Info) Description 08/21/2025 5:20 PM CDT Telemedicine [facility] [address] [facility] [place] [phone] Titi Jones PA-C [address] [facility] 100 [place], [place] [phone] documented as of this encounter Visit Diagnoses Not on filedocumented in this encounter Care Teams College Teacher Relationship Specialty Start Date End Date Titi Jones PA-C [address] [place] [address] PCP - General Physician Route Supervisor 05/31/25 documented as of this encounter
--- OUTSIDE RECORDS SUMMARY | 2025-08-15 19:08 | XMS_ITS | Encounter Summary ---
Author Organization [facility] Address [address], [place] [address] Care Team Providers Care Application Support Developer Name Role Phone Titi Jones PA-C Primary Care Provider +1- [phone] Reason for Visit * Reason Comments Refill amphetamine-dextroam phetamine (ADDERALL) 30 MG tablet [Pharmacy Med Name: Amphetamine-Dextroamphetamine Oral Tablet 30 MG]; amphetamine-dextroamphetamine (ADDERALL) 15 MG tablet [Pharmacy Med Name: Amphetamine-Dextroamphetamine Oral Tablet 15 MG] Encounter Details Date Type Department Care Team (Late st Contact Info) Description 07/29/2025 Refill [facility] [address] [place] [address] Titi Jones PA-C [address] [place] [address] Refill (amphetamine-dextroamphe tamine (ADDERALL) 30 MG [...] TITI JONES) Next scheduled visit: [facility] Embedded Refills, Reference: [id number], 07/29/2025 9:30:13 AM Maikol HOOPER: CHENCHO Refill [facility] ([id number]) amphetamine-dextroamphetamine (ADDERALL) 30 MG tablet [Pharmacy Med [...] visit: [facility] Embedded Refills, Reference: [id number], 07/29/2025 9:30:13 AM DANYATMaikol: CHENCHO Refill [facility] ([id number]) * Jose Manuel Parsons Xrwcomdelisa - 07/29/2025 9:30 AM CDT The following is the most recent Careplan note pulled in by [employer]: Diagnosis: ADHD [place] PDMP reviewed: yes, 06/19/2025 [...] Info) Description 08/21/2025 5:20 PM CDT Telemedicine [facility] [address] [place] [address] [place] [phone] Titi Jones PA-C [address] [facility] 100 [place], [place] [id number] documented as of this encounter Visit Diagnoses Diagnosis Attention deficit hyperactivity disorder (ADHD), combined type (HRC) documented in this encounter Care Teams Application Support Developer Relationship Specialty Start Date End Date Titi Jones PA-C [address] [facility] 100 [place], [place] [phone] PCP - General Physician Stacker And Sorter Operator 05/31/25 documented as of this encounter
--- OUTSIDE RECORDS SUMMARY | 2025-08-15 19:08 | XMS_ITS | Clinical Summary ---
Author Organization [facility] Address [address] [place] [address] Care Team Providers Care School Aide Name Role Phone Titi Jones PA-C Primary Care Provider +1- [phone] Source Comments You are receiving this document [...] for each transition of care or referral. [facility] Allergies No known active allergies Medications sildenafil [...] Type Department Care Team Description 07/29/2025 Refill [place] [address] [place] [address] Titi Jones PA-C Refill (amphetamine-dextroamp hetamine (ADDERALL) 30 MG tablet [Pharmacy Med Name: Amphetamine-Dextroamph etamine Oral Tablet 30 MG]; amphetamine-dextroamph etamine (ADDERALL) 15 MG tablet [Pharmacy Med Name: Amphetamine-Dextroamph etamine Oral Tablet 15 MG]) 07/05/2025 4:15 PM CDT Telemedicine [facility] [address] [place] [address]. 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 [address] Enrike Barnett MSW, RADAR MECHANIC 06/29/2025 E-Visit [address] [place] [address] Enrike Barnett MSW, RADAR MECHANIC 06/19/2025 5:20 PM CDT Telemedicine [address] [phone] Titi Jones PA-C Insomnia, unspecified type (Primary Dx) 06/13/2025 3:30 PM CDT Telemedicine [address] [place] [address] Enrike Barnett MSW, RADAR MECHANIC Generalized anxiety disorder (HRC) (Primary Dx); Depression, unspecified depression type 05/30/2025 8:00 AM CDT Telemedicine [facility] [address] [place] [address]. [place] [address] Sherman Reese PA-C ADHD (attention deficit hyperactivity disorder), inattentive type (HRC) (Primary Dx); Generalized anxiety disorder (HRC) 05/30/[address] [address] Titi Jones PA-C Refill (amphetamine-dextroamp hetamine (ADDERALL) 15 MG tablet [Pharmacy Med Name: Amphetamine-Dextroamph etamine Oral Tablet 15 MG]; amphetamine-dextroamph etamine (ADDERALL) 30 MG tablet [Pharmacy Med Name: Amphetamine-Dextroamph etamine Oral Tablet 30 MG]) 05/18/2025 4:35 PM CDT Telemedicine [address] [phone] Titi Jones PA-C Anxiety (HRC) (Primary Dx); Insomnia, unspecified type; Attention deficit hyperactivity disorder (ADHD), combined type (HRC); Iron deficiency anemia, unspecified iron deficiency anemia type from Last 3 Months Immunizations Immunization Administration Dates Next Due 9vHPV (Gardasil 9) 04/11/2025,12/21/2020, 016 DTaP 09/28/1995, 2,02/18/1991,1990 ,1990 HepB Ped/Adol (0-18 yrs) 06/10/1999,02/05/1999,0 12/31/1998 Hib (ActHIB) 11/07/1991,02/18/1991,1990 ,1990 IPV (Polio) 09/28/1995,02/29/1992,1990 ,1990 MMR 01/01/1999,11/07/1991 Pfizer Monovalent 12+ Purple Top 04/25/2021,03/10 Td (7+ yrs) 03/17/2003 Tdap 02/04/2025,12/01/2014 Family [...] 01/31/2025 10:26 AM CDT Plan of Treatment Upcoming Encounters Date Type Department Care Team (Late st Contact Info) Description 08/21/2025 5:20 PM CDT Telemedicine [facility] [address] [place] [address] [address] [place] [phone] Titi Jones PA-C [address] [place] [address] [address] [id number] Health Maintenance Due Date Last Done Comments Adult Preventive Visit 2008 Pneumococcal Vaccine (1 of 2 - PCV) 2009 COVID-19 Vaccine (3 - season) 2025 04/25/2021, 04/03/2021 Influenza Vaccine (#1) 2025 Cholesterol 02/02/2030 02/02/2025 DTaP/Tdap/Td Vaccine (8 - Tdap) 02/04/2035 02/04/2025, [...] CDT Need for hepatitis C screening test LIPID PANEL & DIRECT LDL (IF NEEDED) Routine 02/02/2025 10:12 AM CDT Screening for cholesterol level from Last 3 Months or Most Recently Relevant to Health Maintenance Results * Lipid Panel and Direct LDL(If Needed) (02/02/2025 10:12 AM CDT) Cholesterol 112 0 - 199 mg/dL 02/02/2025 4:18 PM T [facility] Triglyceride 54 <=149 mg/dL 02/02/2025 4:18 PM [facility] HDL Cholesterol 52 >=40 mg/dL 5 4:18 PM [facility] LDL, Calculated 49 <130 mg/dL 4:18 PM [facility] Non HDL Chol, Calculated 60 <=159 mg/dL 02/02/2025 4:18 PM CDT [facility] Cholesterol/HDL Ratio 2.2 <=5.0 02/02/2025 4:18 PM CDT [facility] Hours Fasting 0.1 8 - 12 Hours 02/02/2025 4:18 PM CDT [facility] Blood Venipuncture / Unknown 02/02/2025 10:12 AM CDT 02/02/2025 10:12 AM CDT [facility] PA-C LAB_1 Final Resu lt [facility] [address] [place] [address] * Hepatitis C Antibody, with Reflex (02/02/2025 10:12 AM CDT) Hepatitis C Antibody Negative (Non Reactive) Negative (Non Reactive) 02/02/2025 2:36 PM CDT [facility] Comment:Antibodies to HCV no t detected. Does not exclude the possiblity of exposure to HCV. Blood Venipuncture / Unknown 02/02/2025 10:12 AM CDT 02/02/2025 10:12 AM CDT Tyrese Rivers PA-C LAB_1 Final Resu lt [facility] [address] from Last 3 Months or Most Recently Relevant to Health Maintenance Insurance [facility] Care Teams School Aide Relationship Specialty Start Date End Date Titi Jones PA-C [address] [facility] 100 [place] [address] PCP - General Physician Tank Farm Attendant 05/31/25
--- OUTSIDE RECORDS SUMMARY | 2025-08-15 19:08 | XMS_ITS | Encounter Summary ---
Author Organization [facility] Address [address], [place] [address] Care Team Providers Care Operations Support Coordinator Name Role Phone Titi Jones PA-C Primary Care Provider [phone] Encounter Details Date Type Department Care Team (Late st Contact Info) Description [facility]25 [facility] [address] [place] [address] Enrike Barnett, MEDICAL RECORD RETRIEVAL SPECIALIST, [facility] [address] [place] [address] Social History Tobacco Use Types Packs/Day Years [...] as of this encounter Plan of Treatment Upcoming Encounters Date Type Department Care Team (Late st Contact Info) Description 08/21/2025 5:20 PM CDT Telemedicine [facility] [address] [place] [address] [place] [address] Titi Jones PA-C [address] [place], [place] [address]DEVANTE YANES [phone] documented as of this encounter Visit Diagnoses Not on filedocumented in this encounter Care Teams Operations Support Coordinator Relationship Specialty Start Date End Date Titi Jones PA-C [address] DEVANTE SMITH [phone] PCP - General Physician Automotive Salesperson 05/31/25 documented as of this encounter
[2025-08-15 19:21] VITALS: BP 125/78; PULSE 75; RESP 20; TEMP 37.4; O2SAT 98; BMI 25.1
--- NOTE | 2025-08-15 19:22 | ED_ITS ---
HPI - General Adult General Chief complaint: Laceration/Wound Stated complaint: Lac L hand Time Seen by Provider: 08/15/25 19:23 History of Present Illness HPI narrative: Patient c/o tripping and falling through a glass garage window at 1100 this morning. Patient applied a clotting gauze to his arm - bleeding is controlled. Patient states he was recently diagnosed with MRSA in his left arm wound and states his tetanus is up to date. 35-year-old man presenting to the emergency department following laceration sustained by glass to his left arm, hand after a fall through glass about 8 or 9 hours ago. Seen 9 days ago in this emergency department and treated for potential cellulitis. Numerous sores excoriations. Wound culture has returned with MRSA. Was initiated on doxycycline to which cultured MRSA is sensitive Related Data Home Medications ?Medication ?Instructions ?Recorded ?Confirmed desvenlafaxine succinate PO 08/07/25 dextroamphetamine-amphetamine .ROUTE 08/07/25 gabapentin .ROUTE 08/07/25 propranolol .ROUTE 08/07/25 Allergies Allergy/AdvReac Type Severity Reaction Status Date / Time No Known Drug Allergies Allergy Verified 08/07/25 19:36 Review of Systems Status of ROS: Reports: 6 or more systems reviewed and unremarkable except as noted in History and below [facility] Social History Do you use any of these nicotine containing products: E-Cigarettes How often do you have a drink containing alcohol: never AUDIT-C Alcohol total score: 0 Non-prescribed substance use: denies use service: No Exam Narrative: Exam Narrative: Mildly agitated. Number of tattoos. Left forearm with long proximal inner forearm superficial linear laceration that has stopped bleeding. Has applied clotting dressing to another laceration upon final removal it is v-shaped with apex proximal to and 1/4 inches. There is another inch long full dermal laceration on the dorsal surface of the hypothenar eminence/1st metacarpal of the left hand. Another old deep laceration that has keratinized on the dorsal interphalangeal skin of the left thumb. Left inner ankle where he says had been some infected excoriations looks to have well-healed now. Const: Vital Signs, click to edit/add: Vital Signs - 24 hr 08/15/25 19:21 Temperature 99.3 F Pulse Rate [Right Pulse Oximeter] 75 Respiratory Rate 20 Blood Pressure [Ri ght Upper Arm] 125/78 Pulse Oximetry 98 Oxygen Delivery Me thod Room Air Documenting provider has reviewed patient's vital signs: yes Course Vital Signs Vital signs: Initial Vital Signs Temperature 99.3 F 08/15/25 19:21 Temperature Source Temporal Artery Scan 08/15/25 19:21 Pulse Rate 75 08/15/25 19:21 Respiratory Rate 20 08/15/25 19:21 Blood Pressure 125/78 08/15/25 19:21 Blood Pressure Mean 93 08/15/25 19:21 Blood Pressure Position Sitting 08/15/25 19:21 Pulse Oximetry 98 08/15/25 19:21 Oxygen Delivery Method Room Air 08/15/25 19:21 Vital Signs Temperature 99.3 F 08/15/25 19:21 Pulse Rate 75 08/15/25 19:21 Respiratory Rate 20 08/15/25 19:21 Blood Pressure 125/78 08/15/25 19:21 Pulse Oximetry 98 08/15/25 19:21 Oxygen Delivery Method Room Air 08/15/25 19:21 Temperature 99.3 F 08/15/25 19:21 Pulse Rate 75 08/15/25 19:21 Respiratory Rate 20 08/15/25 19:21 Blood Pressure 125/78 08/15/25 19:21 Pulse Oximetry 98 08/15/25 19:21 Oxygen Delivery Method Room Air 08/15/25 19:21 Medical Decision Making MDM Narrative Medical decision making narrative: There is a good deal of blood about. We do spend some time cleaning him up. Able then to visualize a little better lacerations. Do discuss need for repair. Recommend suturing. Procedure note Forearm and thumb lacerations. Injected lacerations with lidocaine with epinephrine total of 4 mL dispersed through both lacerations. Good anesthesia was achieved. Scrubbed further with Hibiclens and water solution. Wounds are closed with combination of 5 and 6 0 Ethilon and interrupted horizontal mattress sutures. Particularly the forearm required the horizontal mattress sutures over tension. Excellent wound approximation and controlled bleeding is accomplished. Place antibiotic ointment and Telfa dressings, Band-Aid and light pressure dressing. Tolerated this quite well. The patient discharge plan for further discussion Continue with your doxycycline. Take care to protect from sun well taking doxycycline. sutures out in 9 - 10 days. antibiotic ointment for 6 days and then to a dry dressing. change dressing daily. ok to get wet but try not to soak while sutures are in. for further scar reduction/wound healing if desired -- after the scab falls off, can apply daily vitamin e oil or something like maderma or silicone-containing ointments or bandaids daily. especially protect from sun exposure for the first 9 - 12 months. Watch for spreading redness after 2 days accompanied by heat, swelling, marked increase in pain, purulent drainage. Medical Records Medical records reviewed: Yes I reviewed the patient's medical records Discharge Plan Discharge Clinical Impression: Forearm laceration, Hand laceration Patient Disposition: Home, Self-Care Condition: Improved Additional Instructions: Continue with your doxycycline. Take care to protect from sun well taking doxycycline. sutures out in 9 - 10 days. antibiotic ointment for 6 days and then to a dry dressing. change dressing daily. ok to get wet but try not to soak while sutures are in. for further scar reduction/wound healing if desired -- after the scab falls off, can apply daily vitamin e oil or something like maderma or silicone-containing ointments or bandaids daily. especially protect from sun exposure for the first 9 - 12 months. Watch for spreading redness after 2 days accompanied by heat, swelling, marked increase in pain, purulent drainage. Prescriptions: No Action dextroamphetamine-amphetamine [Adderall] .ROUTE propranolol .ROUTE desvenlafaxine succinate [Pristiq] PO gabapentin .ROUTE Follow Up/Referrals: Provider,Not a Local [Non-Staff, Family Practice] Stand Alone Forms: [facility] Info Instructions
--- OUTSIDE RECORDS SUMMARY | 2025-08-15 20:02 | XMS_ITS | CCD ---
Author Name Interface, [id number] lity Address [address] [place] [id number] [facility] Address [address] [address] Reason for Visit Social History
--- OUTSIDE RECORDS SUMMARY | 2025-08-15 20:02 | XMS_ITS | CCD ---
Author Name Interface, [id number] lity Address [address] [place] [id number] [facility] Address [address] [address] Reason for Visit Social History
== END 2025-08-15 21:10 | disposition home or self-care (01) ==
PROVIDERS: Emergency Provider Family Medicine; PCP Family Medicine
DX: S61.412A Laceration without foreign body of left hand, initial encounter (principal); W25.XXXA Contact with sharp glass, initial encounter
CPT/HCPCS: 12001; 99283; 99284

== ENCOUNTER 2025-09-08 17:59 | Outpatient (CLI) | payer BC, SELFPAY | END 2025-09-08 18:00 | disposition home or self-care (01) | LOC: AMB 09-21 15:31 | PROVIDERS: PCP Family Medicine; Visit Provider Student in an Organized Health Care Education/Training Program | DX: F29 Unspecified psychosis not due to a substance or known physiological condition (principal) | CPT/HCPCS: A0998 ==